=== PATIENT | female | born 1995 ===

== ENCOUNTER 2021-06-06 05:27 | Day surgery (SDC) | payer OTHER | END 2021-06-06 17:15 | disposition home or self-care (01) | LOC: CIR.AMB 05:27 | PROVIDERS: ATTEND Obstetrics & Gynecology Gynecologic Oncology | DX: D25.0 Submucous leiomyoma of uterus (principal); N84.0 Polyp of corpus uteri; Z20.822 Contact with and (suspected) exposure to COVID-19 ==